=== PATIENT | female | born 1985 | race African-American/Black ===

== ENCOUNTER 2024-02-14 20:38 | Emergency (ER) | payer SELFPAY ==
[~2024-02-14] VITALS: Ht 175.3 cm; Wt 73.0 kg
[2024-02-14 21:13] VITALS: O2SAT 100
[2024-02-14] MEDS ORDERED: IBUP-2029 MT (23:51)
[2024-02-15] MEDS: IBUPROFEN 600MG TABLET PO ONE (00:45)
[2024-02-15 00:53] VITALS: BP 119/63; PULSE 74; RESP 18; TEMP 36.55848; O2SAT 100
== END 2024-02-15 00:58 | disposition home or self-care (01) ==
LOC: ER 20:38
DX: S40.022A Contusion of left upper arm, initial encounter (principal); M54.2 Cervicalgia; M54.50 Low back pain, unspecified; Z88.0 Allergy status to penicillin; V49.40XA Driver injured in collision with unspecified motor vehicles in traffic accident, initial encounter; Y93.89 Activity, other specified; Y92.89 Other specified places as the place of occurrence of the external cause; Y99.8 Other external cause status
CPT/HCPCS: 99282